=== PATIENT | female | born 1985 | race Caucasian/White ===

== ENCOUNTER → 2017-10-09 17:40 | Outpatient (REF) | payer MEDICAID, SELFPAY ==
[2017-10-09 19:10] LABS: Basophils % 0.5 % (0.1-2.0); Eosinophils # 0.1 K/mm3 (0.0-0.4); Eosinophils % 2.1 % (0.1-12.0); Hematocrit 41.6 % (37.0-47.0); Hemoglobin 13.3 g/dL (12.2-16.2); Lymphocytes # 2.7 K/mm3 (0.7-4.5); Mean Corpuscular Hemoglobin 29.8 pg (27.0-31.2); Mean Platelet Volume 7.6 fl (7.4-10.4); Monocytes # 0.2 K/mm3 (0.1-1.0); Monocytes % 2.8 % (1.7-9.3); Neutrophils # 3.7 K/mm3 (1.8-7.8); Neutrophils % 54.6 % (37.0-80.0); Platelet Count 311 K/mm3 (142-424); Red Blood Count 4.47 M/mm3 (4.20-5.40); White Blood Count 6.8 K/mm3 (4.8-10.8)
[2017-10-09 19:58] LABS: Alanine Aminotransferase 22 U/L (12-78); Albumin Level 3.7 gm/dL (3.4-5.0); Alkaline Phosphatase 93 U/L (46-116); Anion Gap 12.5 mEq/L (5-15); Aspartate Amino Transferase 16 U/L (15-37); Bilirubin,Total 0.2 mg/dL (0.2-1.0); Blood Urea Nitrogen 9 mg/dL (7-18); Calcium 9.5 mg/dL (8.5-10.1); Carbon Dioxide 30 mmol/L (21.0-32.0); Chloride 105 mmol/L (98-107); Creatinine,Serum 0.68 mg/dL (0.55-1.02); Estimated Glomerular Filt Rate 102 ml/min (>60); GFR (African American) 123 ML/MIN (>60); Globulin 3.7 gm/dl (1.3-3.2); Glucose 97 mg/dL (74-106); Potassium 4.5 mmoL/L (3.5-5.1); Sodium 143 mmol/L (136-145); T4 (Thyroxine) 7.5 ug/dl (4.7-13.3); Thyroid Stimulating Hormone 1.33 uIU/ml (0.358-3.740); Total Protein,Serum 7.4 gm/dL (6.4-8.2)
== END ==
LOC: LAB 17:40
PROVIDERS: Visit Provider Nurse Practitioner Family
DX: R00.2 Palpitations (principal); R53.83 Other fatigue
CPT/HCPCS: 80053; 84436; 84443; 85025

== ENCOUNTER → 2017-10-10 16:53 | Outpatient (CLI) | payer MEDICAID, SELFPAY | PROVIDERS: PCP Nurse Practitioner Family; Visit Provider Nurse Practitioner Family | DX: R00.2 Palpitations (principal) | CPT/HCPCS: 93225; 93226 ==

== ENCOUNTER → 2017-11-04 12:57 | Outpatient (CLI) | payer MEDICAID, SELFPAY | PROVIDERS: PCP Nurse Practitioner Family; Visit Provider Physician Assistant | DX: R00.2 Palpitations (principal); R42 Dizziness and giddiness; I49.3 Ventricular premature depolarization; R06.09 Other forms of dyspnea; F41.9 Anxiety disorder, unspecified; F32.9 Major depressive disorder, single episode, unspecified | CPT/HCPCS: 93306 ==

== ENCOUNTER → 2018-07-25 07:52 | Outpatient (CLI) | payer MEDICAID, SELFPAY | PROVIDERS: PCP Emergency Medicine; Visit Provider Urology | DX: R06.02 Shortness of breath (principal) | CPT/HCPCS: 93017 ==

== ENCOUNTER → 2018-08-21 15:52 | Outpatient (CLI) | payer MEDICAID, SELFPAY | PROVIDERS: PCP Nurse Practitioner Family; Visit Provider Internal Medicine | DX: R06.83 Snoring (principal); R53.83 Other fatigue ==

== ENCOUNTER 2018-10-03 07:27 | Emergency (ER) | payer MEDICAID, SELFPAY ==
[2018-10-03 07:28] VITALS: BP 128/96; PULSE 74; O2SAT 96
[2018-10-03 07:36] VITALS: BP 126/66; PULSE 87; RESP 16; TEMP 36.7; O2SAT 98; BMI 37.2
[2018-10-03 07:50] LABS: Urine Pregnancy, HCG Qual. Negative (Negative)
--- NOTE | 2018-10-03 08:08 | CT_ITS ---
CT abdomen pelvis w con INDICATION: Right lower quadrant pain. Abdominal pain. ITS.REASON: abd pain ORDERING PHYSICIAN: Paul Liu MD PATIENT AGE: 32 years COMPARISON: January 12, 2018 PROCEDURE: Oral Contrast: None IV Contrast: 75 cc of Optiray 350 IV contrast utilized TECHNIQUE: Axial images obtained with sagittal and coronal reformats. All CT scans at the facility use one or more dose reduction, viz: automated exposure control, ma/kV adjustment per patient size (including targeted exams where dose is matched to indication, i.e. head), or iterative reconstruction technique. FINDINGS: Lower thorax.. Heart normal size. No active disease at the lung bases. Generous Calcified right granulomatous nodes right infrahilar region Abdomen. Liver spleen, pancreas adrenals unremarkable. Gallbladder. No calcified stones no inflammatory changes or wall thickening. tract. No urinary tract obstruction or calculi. Normal enhancement of the kidneys. Ureters. No calculi. No significant dilatation Pelvis. The uterus is moderate in size. Left ovary is mildly prominent measuring up to 4.3 cm with a small enhancing wall of the of 16mm follicular cyst at its anterior aspect. Right ovary up to 3.7cm height. Likely small follicles here as well. . Only Scant physiologic fluid at cul-de-sac to the right. GI TRACT . The appendix is normal well visualized. Minimal stool is seen throughout the colon. No small bowel dilatation nor obstruction. Stomach unremarkable. No inflammatory changes abdomen or pelvis. No significant mesenteric or pelvic or retroperitoneal lymph nodes. Osseous. No new findings. Stable wedge configuration T11 again noted and stable congenital versus old trauma IMPRESSION Appendix is normal. . No acute findings abdomen or pelvis . No Urinary tract calculi or obstruction Right ureter is very slightly more generous than the left but I believe stable & WNL.. . Mildly prominent Left Ovary measured 4.5 cm and containing 16 mm length versus with slight enhancing wall. .Right Ovary measuring at least 3.7 cm with small follicles. .. Only scant physiologic appearing fluid in cul-de-sac.
--- NOTE | 2018-10-03 08:09 | HMH.EDNVD ---
ED Disposition Clinical Impression: Abdominal pain Qualifiers: Abdominal location: right lower quadrant Qualified Code(s): R10.31 - Right lower quadrant pain Disposition: Home, Self-Care Condition on Discharge: Good Instructions: DI for Acute Abdomen Referrals: Mansi Marquis APRN [Primary Care Provider] - - Critical Care Critical Care Time: No Attestation: On 10/03/18, the high probability of a clinically significant, sudden or life threatening deterioration of the following system(s) required my full and direct attention, intervention and personal management. The time I documented below is in addition to time spent performing reported procedures but includes the following listed in this critical care notation. Medical Decision Making - Medical Records Medical records reviewed: Yes: I reviewed the patient's medical records. - Jus Inquiry Pt receiving controlled substance: No Vital Signs: 10/03/18 07:28 10/03/18 07:36 10/03/18 08:19 Temperature 98.1 F Temperature Source Oral Pulse Rate [Left Radial] 74 87 72 Respiratory Rate 16 Blood Pressure [Right Arm] 128/96 H 126/66 111/76 Blood Pressure Mean [Right Arm] 106 86 87 Blood Pressure Source [Right Arm] Automatic Cuff Automatic Cuff Blood Pressure Position [Right Arm] Sitting Sitting 02 Sat by Pulse Oximetry 96 98 98 Oxygen Delivery Method Nasal Cannula - Lab Data Lab results reviewed: Yes: I reviewed the patient's lab results. Lab Results 10/03/18 07:26: Urine HCG, Qual Negative Orders (Tests/Meds): ORDERS Category Date Time Status CT abdomen pelvis w con Stat Cat Scan 10/03/18 08:08 Ordered CBC w/Auto Diff [Complete Blood Count Auto Diff] Stat Lab 10/03/18 08:04 Received CMP [Comprehensive Metabolic Panel] Stat Lab 10/03/18 08:04 Received Urinalysis and Microscopic Stat Lab 10/03/18 07:40 Ordered - CT Data ED CT Reviewed: Yes: I have viewed the radiologist's interpretation Findings Narrative: see rad report Nausea/Vomiting/Diarrhea HPI - General Chief complaint: Abdominal Pain Stated complaint: right side pain,chills Time Seen by Provider: 10/03/18 07:50 Mode of Arrival: Ambulatory Source of Information: Patient, Medical Record Limitations: No Limitations Description of Symptoms (Recalled from ER Triage Doc. by RN): to ed per pvt car with c/o rlq abd pain starting this am. pt states hx of ovarian cyst feels same. +nausea denies any fever, urinary symptoms. - History of Present Illness HPI Narrative: onset of rt lower abd pain this am MD complaint: nausea, abdominal pain Onset (ago): hour(s) Associated Abdominal Pain: Yes Location of pain: RLQ Severity: moderate Associated symptoms: denies other symptoms - Related Data Previous Rx's Medication Instructions Recorded bisoprolol fumarate 5 mg tablet 2.5 mg PO DAILY #30 tab 07/16/18 quetiapine 100 mg tablet 100 mg PO QHS #30 tab 09/09/18 ibuprofen 800 mg tablet 800 mg PO Q8HP PRN #30 tab 09/14/18 Allergies Allergy/AdvReac Type Severity Reaction Status Date / Time No Known Allergies Allergy Verified 09/09/18 10:58 [facility] History - Hepatitis A Screen Drug use history?: No High risk sexual behaviors?: No History of sexually transmitted infection?: No Currently employed?: No Childcare worker?: No Do you have indoor plumbing?: Yes Do you have electricity?: Yes Attestation statement:: This patient has been screened for Hepatitis A risk factors. I have reviewed the patient's past medical history: Yes Medical History: Reports:: Anxiety, Depression Denies:: Diabetes Mellitus Type 1, Diabetes Mellitus Type 2 Other Surgeries: Yes: , Tubal Ligation, Other Amputation: No Fractures: No Comment: WISDOM TEETH REMOVED - Social History Smoking Status: Current every day smoker Tobacco Type: cigarettes # Packs/Day (cigarettes): 0 Alcohol Intake: never Substance Use Type: denies use, marijuana Occupational Status: employed [employer]
--- NOTE | 2018-10-03 08:10 | PC.NURSE ---
rad notified of CT order, spoke with Yamila
--- NOTE | 2018-10-03 08:12 | ED_ITS ---
ED Disposition Clinical Impression: Abdominal pain Qualifiers: Abdominal location: right lower quadrant Qualified Code(s): R10.31 - Right lower quadrant pain Disposition: Home, Self-Care Condition on Discharge: Good Instructions: DI for Acute Abdomen Referrals: Mansi Marquis APRN [Primary Care Provider] - - Critical Care Critical Care Time: No Attestation: On 10/03/18, the high probability of a clinically significant, sudden or life threatening deterioration of the following system(s) required my full and direct attention, intervention and personal management. The time I documented below is in addition to time spent performing reported procedures but includes the following listed in this critical care notation. Medical Decision Making - Medical Records Medical records reviewed: Yes: I reviewed the patient's medical records. - Jus Inquiry Pt receiving controlled substance: No Vital Signs: 10/03/18 07:28 10/03/18 07:36 10/03/18 08:19 Temperature 98.1 F Temperature Source Oral Pulse Rate [Left Radial] 74 87 72 Respiratory Rate 16 Blood Pressure [Right Arm] 128/96 H 126/66 111/76 Blood Pressure Mean [Right Arm] 106 86 87 Blood Pressure Source [Right Arm] Automatic Cuff Automatic Cuff Blood Pressure Position [Right Arm] Sitting Sitting 02 Sat by Pulse Oximetry 96 98 98 Oxygen Delivery Method Nasal Cannula - Lab Data Lab results reviewed: Yes: I reviewed the patient's lab results. Lab Results 10/03/18 07:26: Urine HCG, Qual Negative Orders (Tests/Meds): ORDERS Category Date Time Status CT abdomen pelvis w con Stat Cat Scan 10/03/18 08:08 Ordered CBC w/Auto Diff [Complete Blood Count Auto Diff] Stat Lab 10/03/18 08:04 Re ceived CMP [Comprehensive Metabolic Panel] Stat Lab 10/03/18 08:04 Received Urinalysis and Microscopic Stat Lab 10/03/18 07:40 Ordered - CT Data ED CT Reviewed: Yes: I have viewed the radiologist's interpretation Findings Narrative: see rad report Nausea/Vomiting/Diarrhea HPI - General Chief complaint: Abdominal Pain Stated complaint: right side pain,chills Time Seen by Provider: 10/03/18 07:50 Mode of Arrival: Ambulatory Source of Information: Patient, Medical Record Limitations: No Limitations Description of Symptoms (Recalled from ER Triage Doc. by RN): to ed per pvt car with c/o rlq abd pain starting this am. pt states hx of ovarian cyst feels same. +nausea denies any fever, urinary symptoms. - History of Present Illness HPI Narrative: onset of rt lower abd pain this am MD complaint: nausea, abdominal pain Onset (ago): hour(s) Associated Abdominal Pain: Yes Location of pain: RLQ Severity: moderate Associated symptoms: denies other symptoms - Related Data Previous Rx's Medication Instructions Recorded bisoprolol fumarate 5 mg tablet 2.5 mg PO DAILY #30 tab 07/16/18 quetiapine 100 mg tablet 100 mg PO QHS #30 tab 09/09/18 ibuprofen 800 mg tablet 800 mg PO Q8HP PRN #30 tab 09/14/18 Allergies Allergy/AdvReac Type Severity Reaction Status Date / Time No Known Allergies Allergy Verified 09/09/18 10:58
[2018-10-03 08:19] VITALS: BP 111/76; PULSE 72; O2SAT 98
--- NOTE | 2018-10-03 08:28 | PC.NURSE ---
pt gone to xray
--- NOTE | 2018-10-03 08:29 | PC.NURSE ---
to ct per wheelchair
[2018-10-03 08:38] LABS: Basophils % 0.6 % (0.1-2.0); Eosinophils # 0.2 K/mm3 (0.0-0.4); Eosinophils % 2.7 % (0.1-12.0); Hematocrit 37.6 % (37.0-47.0); Hemoglobin 12.7 g/dL (12.2-16.2); Lymphocytes % 31.9 % (10-50); Mean Corpuscular HGB Conc 33.9 g/dL (31.8-35.4); Mean Corpuscular Hemoglobin 30.2 pg (27.0-31.2); Mean Corpuscular Volume 89.1 fl (81-99); Mean Platelet Volume 7.3 fl (7.4-10.4); Monocytes # 0.3 K/mm3 (0.1-1.0); Monocytes % 4.1 % (1.7-9.3); Neutrophils # 3.9 K/mm3 (1.8-7.8); Neutrophils % 60.7 % (37.0-80.0); Platelet Count 279 K/mm3 (142-424); Red Blood Count 4.21 M/mm3 (4.20-5.40); White Blood Count 6.4 K/mm3 (4.8-10.8)
[2018-10-03 08:44] LABS: Alanine Aminotransferase 19 U/L (12-78); Albumin Level 3.4 gm/dL (3.4-5.0); Albumin/Globulin Ratio 0.9 (1.1-1.8); Alkaline Phosphatase 68 U/L (46-116); Anion Gap 12.9 mEq/L (5-15); Aspartate Amino Transferase 7 U/L (15-37); Bilirubin,Total 0.2 mg/dL (0.2-1.0); Blood Urea Nitrogen 12 mg/dL (7-18); Calcium 9.1 mg/dL (8.5-10.1); Carbon Dioxide 26 mmol/L (21.0-32.0); Chloride 103 mmol/L (98-107); Creatinine Clearance Estimated 138 mL/min (50-200); Creatinine,Serum 0.89 mg/dL (0.55-1.02); Estimated Glomerular Filt Rate 74 ml/min (>60); GFR (African American) 90 ML/MIN (>60); Globulin 3.7 gm/dl (1.3-3.2); Glucose 95 mg/dL (74-106); Potassium 3.9 mmoL/L (3.5-5.1); Sodium 138 mmol/L (136-145); Total Protein,Serum 7.1 gm/dL (6.4-8.2)
--- NOTE | 2018-10-03 08:53 | PC.NURSE ---
pt returned from xray
[2018-10-03 08:55] LABS: Microscopic, Urine URINE MICROSCOPIC (MICROSCOPIC)
[2018-10-03 08:56] VITALS: BP 106/67; PULSE 53; O2SAT 97
[2018-10-03 08:57] LABS: Appearance,Urine CLEAR (Clear); Bilirubin,Urine Negative (Negative); Blood, Urine TRACE-I (Negative); Color,Urine YELLOW (Yellow); Glucose,Urine (UA) Negative (Negative); Ketones,Urine Negative (Negative); Leukocyte Esterase,Urine Negative (Negative); Nitrate,Urine Negative (Negative); Protein,Urine Negative (Negative); Specific Gravity, Urine 1.025 (1.005-1.030); Urobilinogen,Urine 0.2 EU/dl (0.2)
[2018-10-03 09:08] LABS: Bacteria,Urine 2+ /lpf
[2018-10-03 09:29] VITALS: BP 109/68; PULSE 60
[2018-10-03 09:49] VITALS: BP 110/66; PULSE 62; RESP 16; TEMP 36.6; O2SAT 98
== END 2018-10-03 09:51 | disposition home or self-care (01) ==
PROVIDERS: Emergency Provider Emergency Medicine; PCP Nurse Practitioner Family
DX: R10.31 Right lower quadrant pain (principal); F17.210 Nicotine dependence, cigarettes, uncomplicated
CPT/HCPCS: 74177; 80053; 81001; 81025; 85025; 87086; 99284; Q9967

== ENCOUNTER → 2018-10-07 15:24 | Outpatient (CLI) | payer MEDICAID, SELFPAY | PROVIDERS: Visit Provider Nurse Practitioner Family | DX: N39.0 Urinary tract infection, site not specified (principal) | CPT/HCPCS: 87086 ==

== ENCOUNTER → 2019-06-01 12:58 | Outpatient (CLI) | payer BC, SELFPAY ==
--- NOTE | 2019-06-01 13:05 | MR_ITS ---
PROCEDURE: MR THORACIC SPINE WO CON CLINICAL INDICATION: Mid-Back pain Mid back pain, injury with pain COMPARISON: MR LUMBAR SPINE WO CON from 06/01/2019 TECHNIQUE: Routine multiplanar multi echo sequences are performed without gadolinium enhancement. FINDINGS: There is normal alignment. No acute fracture or dislocation is evident. No bony destructive process. Multilevel degenerative disc disease is present from T6-T12 with mild irregularity of the endplates at T9-T10 and T11 and T12. There is mild wedging of T10 and T11 with loss of height anteriorly of approximately 30 percent with kyphosis at that region. T6-T7: Very minimal right paracentral disc protrusion. T7-T8 degenerative disc disease. T8-T9 degenerative disc disease with tiny left paracentral disc protrusion. T9-T10 mild degenerative disc disease. T10-T11 mild degenerative disc disease. T11-T12: Degenerative disc disease with bulging disc eccentric to the right associated with small osteophyte and kyphosis. IMPRESSION: 1. No acute fracture. 2. No extruded herniated disc. 3. Multilevel degenerative changes as described above with kyphosis and chronic wedging of T10 and T11 with mild bulging disc/disc osteophyte complex slightly eccentric to the right at T11-T12 Dictated by: Didier Martino MD 06/03/2019 06:15 Electronically signed by Didier Martino MD in [place] 06/03/2019 06:15
--- NOTE | 2019-06-01 13:05 | MR_ITS ---
PROCEDURE: MR LUMBAR SPINE WO CON CLINICAL INDICATION: Mid-Back pain Mid back pain, left toe pain and numbness, lifting injury with pain COMPARISON: XR LUMBAR SPINE 2-3V from 05/09/2019 TECHNIQUE: Standard multiplanar multiecho sequences are performed without contrast. 3-D MIP and myelographic images are also rendered and reviewed FINDINGS: There is degenerative disc disease at T11-T12. The T11 vertebral body is not completely included on the study. There was some moderate wedging of T11 on the previous plain film which was felt to be chronic having been present on an older CT scan. Mild bulging disc is present at T11-T12 slightly eccentric toward the right. Spinal cord ends at the T12-L1 region. Mild degenerative disc disease T12-L1. L1-L2, L2-L3, L3-L4 has an unremarkable appearance. L4-5: Mild facet and ligamentum hypertrophy. L5-S1: Mild facet and ligamentum hypertrophy. No extruded herniated disc. IMPRESSION: 1. Degenerative disc disease with bulging disc and kyphosis at T11-T12. The bulging disc is slightly eccentric to the right 2. Mild facet ligamentum hypertrophy 3. No extruded herniated disc. Dictated by: Didier Martino MD 06/03/2019 06:04 Electronically signed by Didier Martino MD in [place] 06/03/2019 06:04
== END ==
PROVIDERS: PCP Nurse Practitioner Family; Visit Provider Nurse Practitioner Family
DX: M54.6 Pain in thoracic spine (principal); Z87.81 Personal history of (healed) traumatic fracture
CPT/HCPCS: 72146; 72148; 76376

== ENCOUNTER 2020-05-30 14:52 | Emergency (ER) | payer BC, SELFPAY ==
[2020-05-30 15:20] VITALS: BP 130/68; PULSE 70; RESP 16; TEMP 36.8; O2SAT 99; BMI 31.8
--- NOTE | 2020-05-30 15:40 | HMH.EDUTC ---
[facility] [place] Clinical Impression: Low back pain Qualifiers: Chronicity: acute Back pain laterality: left Sciatica presence: with sciatica Sciatica laterality: sciatica of left side Qualified Code(s): M54.42 - Lumbago with sciatica, left side Disposition: Home, Self-Care Condition on Discharge: Good Instructions: DI for Sciatica, DI for Back Pain With Sciatica Additional Instructions: Drink plenty of fluids. Take the medications as directed. Follow up with your regular doctor. GO TO THE ER FOR ANY WORSENING SYMPTOMS Don't start the oral steroids until tomorrow, since you had the shot here today. Prescriptions: Cyclobenzaprine HCl [Flexeril 10mg tablet] 10 mg PO Q8HP PRN #30 tab PRN Reason: Muscle Spasm Transmission Status: Received by [facility] methylPREDNISolone [Medrol] 4 mg PO DIRECTED 6 Days #21 tab.ds.pk Transmission Status: Received by [facility] Referrals: Mansi Marquis APRN [Primary Care Provider] - Forms: Work/School Release Time of Disposition: 15:53 Medical Decision Making - Medical Records Medical records reviewed: No: I reviewed the patient's medical records. - Jus Inquiry Pt receiving controlled substance: No Vital Signs: 05/30/20 15:20 05/30/20 16:17 Temperature 98.3 F 98.3 F Temperature Source Oral Pulse Rate 70 Pulse Rate [Right Brachial] 70 Respiratory Rate 16 16 Blood Pressure 130/68 Blood Pressure [Right Arm] 130/68 Blood Pressure Mean [Right Arm] 88 Blood Pressure Source [Right Arm] Automatic Cuff Blood Pressure Position [Right Arm] Sitting 02 Sat by Pulse Oximetry 99 Oxygen Delivery Method Room Air Orders (Tests/Meds): ED MEDICATIONS Discontinued Medications Generic Name Dose Route Start Last Admin Trade Name Freq PRN Reason Stop Dose Admin Ketorolac Tromethamine 60 mg 05/30/20 15:45 05/30/20 15:55 Ketorolac 60mg/2ml Vial IM 05/30/20 15:46 60 mg ONCE ONE Administration Methylprednisolone Sodium Succinate 125 mg 05/30/20 15:45 05/30/20 15:55 Methylprednisolone Sod Succ 125mg Vial IM 05/30/20 15:46 125 mg ONCE ONE Administration [facility] [place] - General Stated complaint: back pain lower left Time Seen by Provider: 05/30/20 15:40 Mode of Arrival: Ambulatory Source of Information: Patient Limitations: No Limitations Description of Symptoms (Recalled from Triage Doc. by RN): PATIENT C/O PAIN IN LEFT HIP AND LEG THAT RADIATES DOWN LEG. HEENT Symptoms (Recalled from RN notes): No Resp Symptoms (Recalled from RN notes): No Skin Symptoms (Recalled from RN notes): No MS Symptoms (Recalled from RN notes): No Functional Status (Recalled from RN notes): WNL - History of Present Illness Provider Complaint: She c/o left lower back pain that radiates down her left leg. This has been ongoing for the past 4 days. She denies any injury, falls, or car wreck recently. She denies any dysuria or urinary complaints. - Related Data Previous Rx's Medication Instructions Recorded quetiapine 50 mg tablet 50 mg PO BID #60 tab 05/09/20 sertraline 50 mg tablet 50 mg PO DAILY #30 tab 05/09/20 Cyclobenzaprine HCl [Flexeril 10mg 10 mg PO Q8HP PRN #30 tab 05/30/20 tablet] methylPREDNISolone [Medrol] 4 mg PO DIRECTED 6 Days #21 05/30/20 tab.ds.pk Allergies Allergy/AdvReac Type Severity Reaction Status Date / Time No Known Allergies Allergy Verified 11/12/19 09:25 - Worker's Comp Is this a Worker's Comp case?: No [facility] History - Hepatitis A Screen Drug use history?: No High risk sexual behaviors?: No History of sexually transmitted infection?: No Currently employed?: No Childcare worker?: No Do you have indoor plumbing?: Yes Do you have electricity?: Yes Attestation statement:: This patient has been screened for Hepatitis A risk factors. I have reviewed the patient's past medical history: Yes Medical History: Reports:: Anxiety, Depression, Hypertension, Ur
[2020-05-30 16:17] VITALS: BP 130/68; PULSE 70; RESP 16; TEMP 36.8; O2SAT 99
== END 2020-05-30 16:20 | disposition home or self-care (01) ==
PROVIDERS: Emergency Provider Nurse Practitioner Family; PCP Nurse Practitioner Family
DX: M54.42 Lumbago with sciatica, left side (principal); F41.8 Other specified anxiety disorders; F17.210 Nicotine dependence, cigarettes, uncomplicated
CPT/HCPCS: 96372; 99201

== ENCOUNTER 2021-02-23 09:13 | Emergency (ER) | payer SELFPAY ==
[2021-02-23 09:30] VITALS: BP 127/76; PULSE 61; RESP 20; TEMP 37.2; O2SAT 99; BMI 38.6
--- NOTE | 2021-02-23 10:27 | HMH.EDUTC ---
[facility] [place]: Muscle spasm of shoulder region Disposition: Home, Self-Care Condition on Discharge: Good Instructions: DI for Muscle Spasm, Cyclobenzaprine, Etodolac Additional Instructions: *Etodolac elana 8 hours with meal as needed for pain/inflammation *Not additional anti-inflammatory like Ibuprofen motrin, aleve, advil with the above amount of Etodolac You can still take Tylenol every 4 hours as needed if you need something else for pain *Ice 20 minutes every 2 hours for the first 48 hours after the initial injury followed by moist heat every 20 minutes 3-4 times a day to affected area *Muscle relaxer every 8 hours as needed for muscle spasms but remember, it WILL cause drowsiness You cannot take it and drive, operate machinery or care for small children. *Keep this area active, no movement leads to more stiffness, However take it easy and avoid heavy lifting pushing or pulling *Follow up with you family doctor if no improvement for further treatment Return if needed Straight to ER if any life threatening symptoms Prescriptions: Etodolac 200 mg PO Q8HP PRN #20 cap PRN Reason: Moderate Pain Transmission Status: Pending to [facility] Cyclobenzaprine HCl [Flexeril 10mg tablet] 10 mg PO TID PRN #15 tab PRN Reason: Muscle Spasm Transmission Status: Pending to [facility] Referrals: Mansi Marquis APRN [Primary Care Provider] - Forms: Work/School Release Medical Decision Making - Jus Inquiry Pt receiving controlled substance: No Jus was queried for this patient: No Vital Signs: 02/23/21 09:30 Temperature 98.9 F Temperature Source Oral Pulse Rate [Right Brachial] 61 Respiratory Rate 20 Blood Pressure [Right Arm] 127/76 Blood Pressure Mean [Right Arm] 93 Blood Pressure Source [Right Arm] Automatic Cuff Blood Pressure Position [Right Arm] Sitting 02 Sat by Pulse Oximetry 99 Oxygen Delivery Method Room Air [facility] - General Stated complaint: lt shoulder/back pain Time Seen by Provider: 02/23/21 10:27 Mode of Arrival: Ambulatory Source of Information: Patient Limitations: No Limitations Description of Symptoms (Recalled from Triage Doc. by RN): PATIENT C/O PAIN TO LEFT SHOULDER BLADE THAT STARTED YESTERDAY AND IS WORSE THIS MORNING. PAIN IS WORSE WITH LIFTING ARM AND REACHING AROUND TO BACK. NO KNOWN INJURY HEENT Symptoms (Recalled from RN notes): No Resp Symptoms (Recalled from RN notes): No Skin Symptoms (Recalled from RN notes): No MS Symptoms (Recalled from RN notes): Yes Functional Status (Recalled from RN notes): WNL - History of Present Illness Provider Complaint: Patient states that she thinks she may have pulled a muscle in her shoulder blade area States that she feels like she is having spasms in her left shoulder and when it spasms up she feels it pull on her neck area States that doesnt remember doing anything to hurt it but she does lifting and pulling at work and it started then States that pain is worse when she tries to raise arm - Related Data Previous Rx's Medication Instructions Recorded Cyclobenzaprine HCl [Flexeril 10mg 10 mg PO Q8HP PRN #30 tab 05/30/20 tablet] methylPREDNISolone [Medrol] 4 mg PO DIRECTED 6 Days #21 05/30/20 tab.ds.pk quetiapine 50 mg tablet 50 mg PO .COMPLEX #30 tab 10/13/20 Cyclobenzaprine HCl [Flexeril 10mg 10 mg PO TID PRN #15 tab 02/23/21 tablet] Etodolac 200 mg PO Q8HP PRN #20 cap 02/23/21 Allergies Allergy/AdvReac Type Severity Reaction Status Date / Time No Known Allergies Allergy Verified 08/29/20 10:25 - Worker's Comp Is this a Worker's Comp case?: No H History - Hepatitis A Screen Drug use history?: No High risk sexual behaviors?: No History of sexually transmitted infection?: No Currently employed?: No Childcare worker?: No Do you have indoor plumbing?: Yes Do you have electricity?: Yes Attestation statement:: This patient has been screened
[2021-02-23 10:39] VITALS: BP 127/76; PULSE 61; RESP 20; TEMP 37.2; O2SAT 99
== END 2021-02-23 10:42 | disposition home or self-care (01) ==
PROVIDERS: Emergency Provider Nurse Practitioner; PCP Nurse Practitioner Family
DX: M62.838 Other muscle spasm (principal); M25.512 Pain in left shoulder; I10 Essential (primary) hypertension; F41.8 Other specified anxiety disorders; F17.210 Nicotine dependence, cigarettes, uncomplicated; Z79.899 Other long term (current) drug therapy
CPT/HCPCS: 99202; G0463

== ENCOUNTER 2021-03-16 12:30 | Emergency (ER) | payer SELFPAY ==
[2021-03-16 12:40] VITALS: BP 152/96; PULSE 76; RESP 20; TEMP 36.9; O2SAT 98; BMI 31.8
--- NOTE | 2021-03-16 12:55 | HMH.EDUTC ---
[facility] [place] Clinical Impression: Viral syndrome, Exhaustion Disposition: Home, Self-Care Condition on Discharge: Good Instructions: DI for Viral Syndrome Additional Instructions: Drink plenty of fluids. Take tylenol for pain or fever. Return if you begin to have difficulty breathing. Follow up with your regular doctor. GO TO THE ER FOR ANY WORSENING SYMPTOMS Go home and rest for the next couple of days. Referrals: Provider,Referral, [Primary Care Provider] - Forms: Work/School Release Time of Disposition: 13:01 Medical Decision Making - Medical Records Medical records reviewed: No: I reviewed the patient's medical records. - Jus Inquiry Pt receiving controlled substance: No Vital Signs: 03/16/21 12:40 03/16/21 13:02 Temperature 98.5 F 98.5 F Temperature Source Oral Pulse Rate 76 Pulse Rate [Right Brachial] 76 Respiratory Rate 20 20 Blood Pressure 152/96 H Blood Pressure [Right Arm] 152/96 H Blood Pressure Mean [Right Arm] 114 Blood Pressure Source [Right Arm] Automatic Cuff Blood Pressure Position [Right Arm] Sitting 02 Sat by Pulse Oximetry 98 Oxygen Delivery Method Room Air [facility] [place] - General Stated complaint: possible upper resp inf Time Seen by Provider: 03/16/21 12:55 Mode of Arrival: Ambulatory Source of Information: Patient Limitations: No Limitations Description of Symptoms (Recalled from Triage Doc. by RN): PATIENT C/O CHEST CONGESTION AND COUGHING UP PHLEGM HEENT Symptoms (Recalled from RN notes): No Resp Symptoms (Recalled from RN notes): Yes Skin Symptoms (Recalled from RN notes): No MS Symptoms (Recalled from RN notes): No Functional Status (Recalled from RN notes): WNL - History of Present Illness Provider Complaint: She states that she has been feeling very tired the past 2 days or so. She has worked a bunch of days in a row. She denies any fever, chills, cough, and congestion. - Related Data Home Medications Medication Instructions Recorded Confirmed No Known Home Medications 03/16/21 03/16/21 Allergies Allergy/AdvReac Type Severity Reaction Status Date / Time No Known Allergies Allergy Verified 08/29/20 10:25 - Worker's Comp Is this a Worker's Comp case?: No [facility] History - Hepatitis A Screen Drug use history?: No High risk sexual behaviors?: No History of sexually transmitted infection?: No Currently employed?: No Childcare worker?: No Do you have indoor plumbing?: Yes Do you have electricity?: Yes Attestation statement:: This patient has been screened for Hepatitis A risk factors. I have reviewed the patient's past medical history: Yes Medical History: Reports:: Anxiety, Depression, Hypertension, Urinary Tract Infection Denies:: Diabetes Mellitus Type 1, Diabetes Mellitus Type 2 Other Surgeries: Yes: (X2), Tubal Ligation, Other Amputation: No Fractures: Yes (COMPRESSION FX) Comment: WISDOM TEETH REMOVED - Social History Smoking Status: Current every day smoker Tobacco Type: cigarettes # Packs/Day (cigarettes): 1 Alcohol Intake: never Substance Use Type: denies use, marijuana Occupational Status: other Housing: house Household Members: spouse, children - Psychiatric History Pschychiatric History:: Reports:: Anxiety, Depression Family Hx:: Hypertension, Cancer Comment: OSTEOPOROSIS ROS Obtained: Yes All systems reviewed & no additional complaints - Constitutional Constitutional: Reports chills, Denies fever(s), Denies poor appetite, Denies malaise - Eyes Eyes: Denies eye discharge - ENT Ears, Nose, Mouth, and Throat: Denies dizziness, Denies otalgia, Denies sore throat - Cardiovascular Cardiovascular: Denies chest pain - Respiratory Respiratory: Denies chest congestion, Denies cough, Denies dyspnea, Denies stridor, Denies wheezing - Gastrointestinal Gastrointestingal: Reports: nausea. Denies: abdominal pain, diarrhea, vomiting Physical Exam - General General appear
[2021-03-16 13:02] VITALS: BP 152/96; PULSE 76; RESP 20; TEMP 36.9; O2SAT 98
== END 2021-03-16 13:05 | disposition home or self-care (01) ==
PROVIDERS: Emergency Provider Nurse Practitioner Family
DX: B34.9 Viral infection, unspecified (principal); R53.83 Other fatigue
CPT/HCPCS: 99202; G0463

== ENCOUNTER 2022-03-18 14:56 | Emergency (ER) | payer MEDICAID, SELFPAY ==
[2022-03-18 15:00] VITALS: BP 134/101; PULSE 91; RESP 18; TEMP 36.6; O2SAT 98; BMI 29.8
--- NOTE | 2022-03-18 15:02 | XR_ITS ---
PROCEDURE INFORMATION: Exam: XR Sacrum and Coccyx, 2 or More Views Exam date and time: 03/18/2022 3:05 PM Age: 36 years old Clinical indication: Injury or trauma; Fall; Blunt trauma (contusions or hematomas) TECHNIQUE: Imaging protocol: XR of the sacrum and coccyx, 2 or more views. COMPARISON: CR XR PELVIS 1-2V 03/18/2022 3:03 PM FINDINGS: Bones/joints: Lucency in the distal sacrum may represent nondisplaced fracture. Soft tissues: Normal. IMPRESSION: Lucency in the distal sacrum may represent nondisplaced fracture.
--- NOTE | 2022-03-18 15:02 | XR_ITS ---
PROCEDURE INFORMATION: Exam: XR Lumbosacral Spine Exam date and time: 03/18/2022 3:07 PM Age: 36 years old Clinical indication: Injury or trauma; Fall; Blunt trauma (contusions or hematomas) TECHNIQUE: Imaging protocol: Radiologic exam of the lumbosacral spine. Views: 2 or 3 views. COMPARISON: XR SACRUM COCCYX MIN 2V 03/18/2022 3:05 PM FINDINGS: Bones/joints: No acute fracture of the lumbar spine. Mild compression of T10, T1 and T12 may represent remote compression fractures of unknown age. Wedging of T10 and T11 were described on the MR from 2019. No intervertebral disc space narrowing Soft tissues: Unremarkable. IMPRESSION: Mild compression of T10, T1 and T12 may represent remote compression fractures of unknown age. Wedging of T10 and T11 were described on the MR from 2019.
--- NOTE | 2022-03-18 15:04 | XR_ITS ---
PROCEDURE INFORMATION: Exam: XR Pelvis Exam date and time: 03/18/2022 3:03 PM Age: 36 years old Clinical indication: Injury or trauma; Fall; Blunt trauma (contusions or hematomas); Bilateral; Pelvic region TECHNIQUE: Imaging protocol: Radiologic exam of the pelvis. Views: 1 or 2 view. COMPARISON: ABDPELW CT abdomen pelvis w con 10/03/2018 8:35 AM FINDINGS: Bones/joints: There is no evidence of acute fracture.There is no evidence of malalignment or dislocation. Soft tissues: Unremarkable. IMPRESSION: There is no evidence of acute fracture.There is no evidence of malalignment or dislocation.
--- NOTE | 2022-03-18 15:09 | EXP.UTC ---
Discharge Plan Disposition Patient Disposition: Home, Self-Care Condition: Good Prescriptions Prescriptions: New etodolac 200 mg capsule 200 mg PO Q8H PRN (Reason: pain) Qty: 20 0RF Referrals Follow up/Referrals: Mansi Marquis APRN [Primary Care Provider] - See instructions Activity Restrictions/Add. Instructions Additional Instructions/Restrictions: Sitting on donut or round pillow may help with pain in coccyx Take medication as prescribed however it is similar to Motrin and Ibuprofen so do not take those while taking this medication Make sure to drink plenty of fluids and try to keep stool soft, constipation and pushing to pass bowel movement may cause pain in coccyx Follow up with your Family Doctor if symptoms worsen or do not improve Follow up with Family Doctor for further testing and evaluation if you continue to have pain in your lower back area Straight to ER if any life threatening symptoms Clinical Impressions Clinical Impression: Closed fracture of coccyx Qualifiers: Encounter type: initial encounter Qualified Code(s): S32.2XXA - Fracture of coccyx, initial encounter for closed fracture Instructions Patient Instructions: Coccyx Fracture, DI for Coccyx Fracture [place]charge [place] Linsey Mak [facility] [place] General Stated complaint: AO 03/18@home@1600 pain in hips Time Seen by Provider: 03/18/22 15:09 History of Present Illness Provider Complaint: Patient states that she was walking out her door at home yesterday when she tripped over her dog and fell and landed on her buttock area States that ever since she has been having pain in her buttock area that shoots up into her lower back and hurts in her pelvic area when she tries to sit down or go from sitting to standing States that today the pain was worse so she came in to get it checked out Related Data Previous Rx's Medication Instructions Recorded etodolac 200 mg capsule 200 mg PO Q8H PRN pain #20 caps 03/18/22 Allergies Allergy/AdvReac Type Severity Reaction Status Date / Time No Known Allergies Allergy Verified 08/29/20 10:25 PFSH PFSH Surgical History (Updated 03/18/22 @ 15:11 by Vicki Yan RN) History of section History of tubal ligation Social History (Updated 03/18/22 @ 15:11 by Vicki Yan RN) Smoking Status: Current every day smoker tobacco type: cigarettes packs per day: 1 alcohol intake: never substance use type: denies use and marijuana current occupational status: other Travel in the last 8 weeks: None household members: spouse and children housing: house number of children: 2 ROS Obtained: Yes All systems reviewed & no additional complaints except as documented and Yes Systems reviewed as appropriate & no additional complaints except as documented Constitutional Constitutional: Reports system reviewed and no additional complaints, except as documented and Reports as per HPI Cardiovascular Cardiovascular: Reports system reviewed and no additional complaints, except as documented and Reports as per HPI Respiratory Respiratory: Reports system reviewed and no additional complaints, except as documented and Reports as per HPI Musculoskeletal Musculoskeletal: Reports system reviewed and no additional complaints, except as documented and Reports back pain (low back pain) Comments: Pain in lower back, pelvic area and buttock area after falling yesterday denies loss of control of bowel or bladder Physical Exam General General appearance: alert and in no apparent distress Respiratory Respiratory exam: Present normal lung sounds bilaterally; Absent respiratory distress or wheezes Cardiovascular Cardiovascular exam: Present regular rate and normal heart sounds; Absent normal rhythm or bradycardia Back Exam Back exam: Present tenderness Back 1 view image: 1. reports pain after falling yesterday in lower back, buttock area and pelvic area when she would try to stand or sit No brui
[2022-03-18 15:43] VITALS: BP 134/101; PULSE 91; RESP 18; TEMP 36.6; O2SAT 98
== END 2022-03-18 16:18 | disposition home or self-care (01) ==
PROVIDERS: Emergency Provider Nurse Practitioner; PCP Nurse Practitioner Family
DX: S32.2XXA Fracture of coccyx, initial encounter for closed fracture (principal); W01.0XXA Fall on same level from slipping, tripping and stumbling without subsequent striking against object, initial encounter
CPT/HCPCS: 72100; 72170; 72220; 96372; 99213; G0463

== ENCOUNTER → 2022-03-19 13:29 | Outpatient (CLI) | payer MEDICAID, SELFPAY ==
[2022-03-19 17:24] LABS: Basophils % 0.6 % (0.1-2.0); Eosinophils # 0.2 K/mm3 (0.0-0.4); Eosinophils % 3.6 % (0.1-12.0); Hemoglobin 12.3 g/dL (12.2-16.2); Lymphocytes # 2.5 K/mm3 (0.7-4.5); Lymphocytes % 38.1 % (10-50); Mean Corpuscular HGB Conc 33.1 g/dL (31.8-35.4); Mean Corpuscular Hemoglobin 30.8 pg (27.0-31.2); Mean Corpuscular Volume 93.1 fl (81-99); Mean Platelet Volume 8.4 fl (7.4-10.4); Monocytes # 0.3 K/mm3 (0.1-1.0); Monocytes % 4.1 % (1.7-9.3); Neutrophils # 3.6 K/mm3 (1.8-7.8); Neutrophils % 53.7 % (37.0-80.0); Platelet Count 337 K/mm3 (142-424); Red Blood Count 3.97 M/mm3 (4.20-5.40); Red Cell Distribution Width 13.3 % (11.5-17.5); White Blood Count 6.7 K/mm3 (4.8-10.8)
[2022-03-19 18:00] LABS: Chloride 105 mmol/L (98-107); Sodium 140 mmol/L (136-145)
[2022-03-19 18:01] LABS: Potassium 4.7 mmoL/L (3.5-5.1)
[2022-03-19 18:03] LABS: Alanine Aminotransferase 14 U/L (12-78); Albumin Level 3.6 g/dl (3.5-5.0); Albumin/Globulin Ratio 1.3 (1.1-1.8); Alkaline Phosphatase 74 U/L (38-126); Anion Gap 10.7 mEq/L (5-15); Aspartate Amino Transferase 23 U/L (14-36); Blood Urea Nitrogen 8 mg/dl (7-17); Carbon Dioxide 29 mmol/L (22.0-30.0); Cholesterol 171 mg/dl (140-200); Estimated Glomerular Filt Rate 71 ml/min (>60); GFR (African American) 86 ML/MIN (>60); Globulin 2.8 g/dL (1.3-3.2); Total Protein,Serum 6.4 g/dl (6.3-8.2); Triglycerides 83 mg/dl (30-150); VLDL Cholesterol 17 mg/dL (0-40)
[2022-03-19 18:04] LABS: Bilirubin,Total < 0.1 mg/dl (0.2-1.3); Calcium 8.7 mg/dl (8.4-10.2); Glucose 88 mg/dl (74-100); HDL Cholesterol 43 mg/dl (40-60)
[2022-03-19 18:15] LABS: Direct LDL Cholesterol 101.17 mg/dL (100-129)
[2022-03-19 18:34] LABS: Thyroid Stimulating Hormone 1.71 uIU/mL (0.465-4.68)
== END ==
PROVIDERS: PCP Physician Assistant; Visit Provider Physician Assistant
DX: S32.000A Wedge compression fracture of unspecified lumbar vertebra, initial encounter for closed fracture (principal)
CPT/HCPCS: 80053; 80061; 82306; 84443; 85025

== ENCOUNTER → 2022-04-05 08:01 | Outpatient (CLI) | payer MEDICAID, SELFPAY ==
--- NOTE | 2022-04-05 08:10 | XR_ITS ---
FINAL REPORT TECHNIQUE: Bone mineral density was calculated of the lumbar spine and hip. CLINICAL HISTORY: .COMPRESSION FX'S FINDINGS: DEXA BONE DENSITY AXIAL SKELETON Using L1-4, the bone mineral density of the spine is 1.126 g/cm2, corresponding to T-score of 1.6. Using the right hip, the bone mineral density of the femoral neck is 0.892 g/cm2, corresponding to a T-score of 0.4. NOTE: T-score: Standard deviation compared with peak bone mass of young adult mean. *Following the recommendations of the International Society of Bone densitometry, classification of hip BMD is based on the lower of two T-scores; total hip or femoral neck. IMPRESSION: Normal bone mineral density of the lumbar spine and hip. Reviewed, Interpreted and Dictated by Bijan Hubbard III, MD Transcribed by Coco Haas Authenticated and . [facility]
== END ==
PROVIDERS: PCP Physician Assistant; Visit Provider Physician Assistant
DX: S32.2XXA Fracture of coccyx, initial encounter for closed fracture (principal); Z13.820 Encounter for screening for osteoporosis
CPT/HCPCS: 77080

== ENCOUNTER → 2022-10-15 15:50 | Outpatient (CLI) | payer MEDICAID, SELFPAY ==
--- NOTE | 2022-10-15 15:53 | XR_ITS ---
FINAL REPORT CLINICAL HISTORY: left knee pain, no injury FINDINGS: LEFT KNEE There is no acute fracture or dislocation. The joint spaces are intact. There is no soft tissue abnormality. IMPRESSION: No acute fracture Reviewed, Interpreted and Dictated by Sky Brown MD Transcribed by Angela Gaitan Authenticated and [facility]
== END ==
PROVIDERS: PCP Physician Assistant; Visit Provider Nurse Practitioner Family
DX: M25.562 Pain in left knee (principal)
CPT/HCPCS: 73560

== ENCOUNTER 2022-10-17 15:47 | Outpatient (RCR) | payer MEDICAID, SELFPAY | END 2022-10-17 17:00 | disposition home or self-care (01) | LOC: PT 15:47 | PROVIDERS: Visit Provider Orthopaedic Surgery | DX: M25.562 Pain in left knee (principal); M25.462 Effusion, left knee | CPT/HCPCS: 97760 ==

== ENCOUNTER → 2022-10-26 14:38 | Outpatient (CLI) | payer MEDICAID, SELFPAY ==
--- NOTE | 2022-10-26 14:38 | MR_ITS ---
FINAL REPORT TECHNIQUE: Multiplanar MR without contrast CLINICAL HISTORY: knee pain popping of left knee when walking x 1 week swelling FINDINGS: Articular cartilage: Grade 2 chondromalacia patella. No osteochondral defects identified. Marrow signal: Unremarkable Joint fluid: Moderate joint effusion. Menisci: There is an oblique tear of the posterior horn of the medial meniscus. The meniscus is partially extruded away from the bony articular surface. The lateral meniscus is intact. Ligaments: There is increased signal within the anterior cruciate ligament suggesting mild partial tear. The posterior cruciate ligament is intact. The collateral and patellofemoral ligaments are intact. IMPRESSION: Moderate oblique tear posterior horn medial meniscus. Partial tear of the anterior cruciate ligament. Reviewed, Interpreted and Dictated by Francesca Burton MD Transcribed by Sujatha Carmichael Authenticated and . [facility]
== END ==
PROVIDERS: PCP Physician Assistant; Visit Provider Orthopaedic Surgery
DX: M25.562 Pain in left knee (principal); M23.92 Unspecified internal derangement of left knee
CPT/HCPCS: 73721

== ENCOUNTER → 2022-12-20 09:49 | Outpatient (CLI) | payer MEDICAID, SELFPAY ==
--- NOTE | 2022-12-20 10:06 | XR_ITS ---
FINAL REPORT CLINICAL HISTORY: preop for meniscus/ACL repair, hx of cough & smoker for 18 yrs FINDINGS: TWO VIEW CHEST The heart size is normal. The mediastinum is normal. There are calcified right hilar nodes consistent with prior granulomatous disease. The lungs are otherwise clear. There is no active disease present. There is no pneumothorax. There is chronic wedging of several lower thoracic vertebra. IMPRESSION: No acute cardiopulmonary abnormality. Reviewed, Interpreted and Dictated by Bijan Hubbard III, MD Transcribed by Tonio Buitrago Authenticated and [facility]
[2022-12-20 10:30] LABS: MANUAL DIFFERENTIAL MANUAL DIFFERENTIAL (MANUAL DIFF)
--- NOTE | 2022-12-20 10:33 | ECG_ITS ---
APPROVED REPORT Exam: Resting ECG HR:55 bpm ECG Measurements Heart Rate 55 AXES CO 171 P 66 QRSd 77 QRS 68 QT 399 T 43 QTc 388 Conclusion SINUS BRADYCARDIA LOW QRS VOLTAGE IN PRECORDIAL LEADS [QRS DEFLECTION < 1.0 mV IN CHEST LEADS] BORDERLINE ECG UNCONFIRMED REPORT Electronically signed by : Aftab Traore MD 12/20/2022 21:13:50
[2022-12-20 11:02] LABS: Basophils % 0.5 % (0.1-2.0); Eosinophils # 0.2 K/mm3 (0.0-0.4); Eosinophils % 3.7 % (0.1-12.0); Hematocrit 39.5 % (37.0-47.0); Hemoglobin 12.7 g/dL (12.2-16.2); Lymphocytes # 1.9 K/mm3 (0.7-4.5); Lymphocytes % 29.2 % (10-50); Mean Corpuscular HGB Conc 32.2 g/dL (31.8-35.4); Mean Corpuscular Hemoglobin 29.2 pg (27.0-31.2); Mean Corpuscular Volume 90.6 fl (81-99); Mean Platelet Volume 7.7 fl (7.4-10.4); Monocytes # 0.3 K/mm3 (0.1-1.0); Monocytes % 4.2 % (1.7-9.3); Neutrophils % 62.5 % (37.0-80.0); Platelet Count 269 K/mm3 (142-424); Red Blood Count 4.36 M/mm3 (4.20-5.40); Red Cell Distribution Width 13.5 % (11.5-17.5); White Blood Count 6.4 K/mm3 (4.8-10.8)
[2022-12-20 11:08] LABS: Prothrombin Time 10.8 seconds (10.1-12.5)
[2022-12-20 11:18] LABS: Hemoglobin A1C 5.4 % (4.0-6.0)
[2022-12-20 11:59] LABS: Alanine Aminotransferase 21 U/L (12-78); Albumin Level 3.6 g/dl (3.5-5.0); Albumin/Globulin Ratio 1.3 (1.1-1.8); Alkaline Phosphatase 76 U/L (38-126); Anion Gap 7.2 mEq/L (5-15); Aspartate Amino Transferase 24 U/L (14-36); Bilirubin,Total 0.4 mg/dl (0.2-1.3); Blood Urea Nitrogen 8 mg/dl (7-17); Calcium 8.6 mg/dl (8.4-10.2); Carbon Dioxide 27 mmol/L (22.0-30.0); Chloride 107 mmol/L (98-107); Estimated Glomerular Filt Rate 95 ml/min (>60); GFR (African American) 115 ML/MIN (>60); Globulin 2.8 g/dL (1.3-3.2); Glucose 93 mg/dl (74-100); Potassium 4.2 mmoL/L (3.5-5.1); Sodium 137 mmol/L (136-145); Total Protein,Serum 6.4 g/dl (6.3-8.2)
[2022-12-20 13:00] LABS: Eosinophils % 1 % (0-3); Lymphocytes % 26 % (10-50); Monocytes % 4 % (2-9); Neutrophils % 69 % (42-76); Platelet Estimate Normal; RBC Morphology Normal; Total Cells Counted 100
== END ==
PROVIDERS: PCP Physician Assistant; Visit Provider Physician Assistant
DX: Z01.818 Encounter for other preprocedural examination (principal); S83.242A Other tear of medial meniscus, current injury, left knee, initial encounter
CPT/HCPCS: 36415; 71046; 80053; 83036; 85007; 85014; 85018; 85048; 85049; 85610; 93005

== ENCOUNTER 2022-12-25 06:01 | Day surgery (SDC) | payer MEDICAID, SELFPAY ==
[2022-12-24 11:59] VITALS: BMI 33.6
[2022-12-25] VITALS (13 sets, daily range): BP systolic 98–146; BP diastolic 51–95; PULSE 49–83; RESP 15–18; TEMP 36.1–43; O2SAT 93–98
[2022-12-25 06:35] LABS: Urine Pregnancy, HCG Qual. Negative (Negative)
--- NOTE | 2022-12-25 06:56 | EXP.ANES.CKL ---
[facility] [place] Disclaimer: The information contained in this section may have been updated after the patient was seen, as this information can be updated by other users. Medical History No significant past medical history Surgical History History of section History of tubal ligation Family History Other Family history of cancer Family history of diabetes mellitus Family history of heart disease Social History Smoking Status: Current every day smoker tobacco type: cigarettes packs per day: 1 pack-years: 18 alcohol intake: never substance use type: denies use and marijuana current occupational status: unemployed and other Travel in the last 8 weeks: None household members: spouse and children housing: house lives independently: No marital status: number of children: 2 education level: high school service: No caffeine: Yes special vladimir needs: No do you feel safe at home: Yes victim of physical abuse: No victim of emotional abuse: No victim of sexual abuse: No would you like helpful sources: No [facility] Anesthesia Checklist Patient Identification Patient Identification: Arm Band and Verbal (Name & ) Structural Data Admitted From: Home Planned Operative Procedure/s: Knee arthroscopy Consent for Planned Operative Procedure(s) Verified: Yes NPO Status Verified Time NPO: 00:00 Chart Verification Results Verified: HCG Additional verifications Anesthesia Reactions: No Hx Blood Transfusions: No Blood Transfusion Reaction: No Airway Assessment C-Spine Mobility Assessed: Yes TMJ Mobility Assessed: Yes Dentition: Good Dentition Neurological Assessment Level of Consciousness: Awake Hx Seizures: No Numbness or tingling in extremities: No Anesthesia Plan Anesthesia Risk discussed: Yes Anesthesia Plan: Verified ASA Class: II Anesthesia Type: General
--- NOTE | 2022-12-25 08:25 | P.PNANES_ITS ---
[facility] Anesthesia Record Part I Anesthesia Record I Intake, IV Amount: 800 Estimated blood loss (mL): 5 Urine output (mL): 0 Blood Pressure: 130/69 SaO2: 93 Pulse Rate: 50 Respiratory Rate: 15 Temperature: 98.1 F Patient is:: Drowsy and Oral/Nasal airway Stable to PACU at:: 08:25
--- NOTE | 2022-12-25 08:25 | EXP.OP.NOTE ---
Date of procedure: 12/25/22 Pre-op Diagnosis:: Left knee medial meniscus tear Post-op Diagnosis:: Left knee medial meniscus tear Procedure performed:: Left knee arthroscopy with partial medial meniscectomy Surgeon:: Rock Rea MD Anesthesiologist Assistant(s):: None DISABILITY AIDE:: Lili Harrington Anesthesia: GETA and local Estimated blood loss (mL): 5 Clinical Note:: Dedrick is a pleasant 37-year-old female who has been dealing with left knee pain over the past couple of months. History and exam consistent with complex medial meniscus tear as seen on MRI from 10/26. No relief with anti-inflammatories or Tylenol. 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 No relief with a Medrol Dosepak. MRI revealed a large undersurface tear posterior horn and body the medial meniscus. We discussed all the risks, benefits and alternatives to left knee arthroscopy for partial medial meniscectomy and she agreed to proceed. Surgical consent form was signed. Operative findings:: Left knee large complex tear posterior horn and body of the medial meniscus with unstable inferior flap of the horizontal cleavage tear. Mild patella chondromalacia. Operative note:: She was seen in the preoperative holding area. The left knee was marked to confirm the correct operative site. She was seen by anesthesia. She received Ancef 2 g IV prophylactic antibiotics within 1 hour incision time. She was brought back to the OR. General anesthesia induced without difficulty. Left lower extremity prepped and draped in the usual sterile fashion. Timeout performed to confirm left knee arthroscopy on patient Dedrick Barragan. I made an anterolateral viewing portal with an 11 blade scalpel. Arthroscope was introduced into the knee joint. I then made an anterior medial portal localizing this with a spinal needle. This incision was made with an 11 blade and dilated with a trocar. Diagnostic arthroscopy commenced. She was seen to have a large horizontal cleavage tear posterior horn and body of the medial meniscus with an displaced inferior flap tear. This was treated with a partial medial meniscectomy using a 3.5 mm shaver to resect out the unstable inferior flap of the horizontal cleavage tear. We had to remove the undersurface of the posterior horn and body of the medial meniscus and approximate inner third of the posterior horn of the medial meniscus to create a smooth border to the meniscus. There was very minimal chondromalacia of the medial compartment. Cruciate ligaments were seen to be intact. She was placed in the [id number] position. Lateral meniscus was intact and no chondromalacia of the lateral compartment. Evaluation of the patellofemoral compartment revealed some grade II chondromalacia of the central aspect of the patella. This was treated with the shaver resecting the unstable cartilage flaps back to a smooth stable border. There was no full-thickness cartilage loss. Arthroscopy instruments removed from the joint. Arthroscopy fluid suctioned and drained from the joint. Portals were closed with 4-0 Monocryl subcuticular sutures. We injected 20 cc of half percent Naropin from the superior lateral approach for local anesthetic. A sterile dressing was applied with Steri-Strips, 4 x 4's, ABD, soft roll and Curtis bandage. Anesthesia reversed without difficulty. Transferred to recovery in stable condition. All sponge and needle counts correct x2. Postoperative plan: She will be weightbearing as tolerated with crutch assist as needed. Ice and elevate the left knee. Aspirin for DVT prophylaxis. Oxycodone as needed for pain. We will see her back in the office for her postoperative check on 01/04. Tourniquet time (min): 0 Condition: stable Disposition: PACU Specimens:: None Complications:: None
--- NOTE | 2022-12-25 12:16 | EXP.ANES.II ---
[facility] Anesthesia Record Part II Anesthesia Record Part II Discharge Time: 09:05 Destination: Surgical Day Care (OP Surgery) PACU nurse assessment reviewed?: Yes Patient Condition:: Good Anesthesia Complications:: None Swallowing reflex intact?: Yes Cyanosis?: No Blood Pressure: 114/72 Pulse Rate: 80 Temperature: 98.1 F Mental Status: Alert & Oriented Pain level:: 6 Nausea and/or vomitting:: None Intake, IV Amount: 0
== END 2022-12-25 10:14 | disposition home or self-care (01) ==
PROVIDERS: PCP Physician Assistant; Visit Provider Orthopaedic Surgery
PROC: (CPT 29870; principal; 2022-12-25 07:30)
DX: S83.242A Other tear of medial meniscus, current injury, left knee, initial encounter (principal); X58.XXXA Exposure to other specified factors, initial encounter; F17.210 Nicotine dependence, cigarettes, uncomplicated
CPT/HCPCS: 29881; 81025; 96374; J2405

== ENCOUNTER 2023-11-20 17:36 | Emergency (ER) | payer MEDICAID, SELFPAY ==
[2023-11-20 17:55] VITALS: BP 130/67; PULSE 93; RESP 18; TEMP 36.8; O2SAT 98; BMI 31.2
--- NOTE | 2023-11-20 17:56 | ED_ITS ---
Discharge Plan Disposition Patient Disposition: Home, Self-Care Condition: Good Prescriptions Prescriptions: New cyclobenzaprine 10 mg Tablet 10 mg PO BID PRN (Reason: Muscle Spasm) Qty: 20 0RF methylprednisolone 4 mg Tablets,Dose Pack 4 mg PO DIRECTED 6 Days Qty: 21 0RF Rx Instructions: Take 1 pack as directed for 6 days No Action omeprazole 40 mg capsule,delayed release(DR/EC) 40 mg PO DAILY Qty: 90 0RF Rx Instructions: swallow whole; do not crush, chew, dissolve, cut, break Referrals Follow up/Referrals: Abbey Yanez PA [Primary Care Provider] - See instructions Activity Restrictions/Add. Instructions Additional Instructions/Restrictions: Go home and rest. It would be best if you rested tomorrow too. No heavy lifting. No twisting. Take the oral medications as directed. The muscle relaxer (cyclobenzaprine--Flexeril) will make you drowsy, so don't drive or operate heavy machinery after taking it. Follow up with your regular doctor. GO TO THE ER FOR ANY WORSENING SYMPTOMS OR CONCERN, ESPECIALLY BOWEL OR BLADDER ISSUES, SADDLE AREA NUMBNESS, FEVER, ETC Clinical Impressions Clinical Impression: Thoracic back pain Stand Alone Forms Stand Alone Forms: Work/School Release Instructions Patient Instructions: Cyclobenzaprine, Methylprednisolone, DI for Thoracic Back Pain Discharge ED Provider: Dangelo Blackburn [facility] [place] General Stated complaint: LT side back pain Time Seen by Provider: 11/20/23 17:56 History of Present Illness Provider Complaint: She states that for the past 2 days she has had left sided middle back pain. She has been moving and she states that she has pulled a muscle in her back. Related Data Previous Rx's Medication Instructions Recorded omeprazole 40 mg capsule,delayed 40 mg PO DAILY gerd #90 caps 01/14/23 release cyclobenzaprine 10 mg tablet 10 mg PO BID PRN Muscle Spasm #20 11/20/23 tabs methylprednisolone 4 mg tablets in 4 mg PO DIRECTED 6 days #21 tabs 11/20/23 a dose pack Allergies Allergy/AdvReac Type Severity Reaction Status Date / Time No Known Allergies Allergy Verified 11/20/23 18:07 [facility] Disclaimer: The information contained in this section may have been updated after the patient was seen, as this information can be updated by other users. Medical History No significant past medical history Surgical History History of tubal ligation History of section Family History Other Family history of cancer Family history of diabetes mellitus Family history of heart disease Social History Smoking Status: Current every day smoker tobacco type: cigarettes packs per day: 1 alcohol intake: never substance use type: denies use and marijuana current occupational status: unemployed and other Travel in the last 8 weeks: None household members: spouse and children housing: house lives independently: No marital status: number of children: 2 education level: high school service: No caffeine: Yes special vladimir needs: No do you feel safe at home: Yes victim of physical abuse: No victim of emotional abuse: No victim of sexual abuse: No would you like helpful sources: No ROS Obtained: Yes All systems reviewed & no additional complaints except as documented Constitutional Constitutional: Denies chills and Denies fever(s) Eyes Eyes: Denies eye discharge ENT Ears, Nose, Mouth, and Throat: Denies dizziness, Denies otalgia, Denies neck pain and Denies sore throat Cardiovascular Cardiovascular: Denies chest pain Respiratory Respiratory: Denies shortness of breath, Denies chest congestion, Denies cough, Denies stridor and Denies wheezing Gastrointestinal Gastrointestingal: Denies nausea or vomiting Musculoskeletal Musculoskeletal: Reports as per HPI, Reports back pain and Denies neck pain Integumentary/Breasts Skin/Breast: Denies rash Neurologic Neurologic: Denies dizziness and Denies paresthesias Allergic/Immunologic Allergic/Immunologic: Denies wheezing Physical Exam General General appearance: alert and in no apparent distress Head Head exam: atraumatic, normocephalic and normal inspection Eye Eye exam: Present normal appearance, PERRL and EOMI ENT ENT exam: Present normal exam, normal oropharynx, mucous membranes moist, TM's normal bilaterally and normal external ear exam Neck Neck exam: Present normal inspection, full ROM and trachea midline; Absent meningismus or lymphadenopathy Chest Chest inspection: Present normal inspection and symmetric chest wall rise; Absent tenderness Respiratory Respiratory exam: Present normal lung sounds bilaterally; Absent respiratory distress Cardiovascular Cardiovascular exam: Present regular rate and normal rhythm; Absent JVD Abdominal Exam Abdominal exam: Present soft and normal bowel sounds; Absent distention, tenderness or guarding Extremities Exam Extremities exam: Present normal inspection, full ROM and normal capillary refill; Absent calf tenderness Back Exam Back exam: Present normal inspection; Absent tenderness Neurological Exam Neurological exam: Present alert, oriented X3, CN II-XII intact, normal gait and reflexes normal; Absent motor sensory deficit Psychiatric Psychiatric exam: Present normal affect and normal mood Skin Skin exam: Present warm, dry, intact and normal color Lymphatic Lymphatic Findings: no adenopathy Medical Decision Making Medical Records Medical records reviewed: No I reviewed the patient's medical records. Jus Inquiry Pt receiving controlled substance: No
[2023-11-20 18:56] VITALS: BP 130/67; PULSE 93; RESP 18; TEMP 36.8; O2SAT 98
== END 2023-11-20 18:56 | disposition home or self-care (01) ==
PROVIDERS: Emergency Provider Nurse Practitioner Family; PCP Physician Assistant
DX: M54.6 Pain in thoracic spine (principal); F17.210 Nicotine dependence, cigarettes, uncomplicated
CPT/HCPCS: 99212; 99214; G0463